=== PATIENT | male | born 1980 | race Caucasian/White ===

== ENCOUNTER 2024-02-18 16:50 | Emergency (ER) | payer OTHER, SELFPAY ==
--- NOTE | ~2024-02-18 | XR_ITS ---
EXAMINATION: XR ankle LT min 3V DATE: 02/18/2024 17:17 INDICATION: Left ankle inversion injury and lateral pain. TECHNIQUE: 4 views of left ankle were obtained. COMPARISON: None. FINDINGS: Bone alignment is normal. There is a nondisplaced transverse fracture of distal tip of the fibula. Joint spaces are normal. There is an enthesophyte at plantar aspect of calcaneal tuberosity. There is lateral ankle soft tissue swelling. IMPRESSION: 1. Transverse fracture of distal tip of the fibula. Reviewed, dictated and finalized at location E.
--- NOTE | 2024-02-18 16:57 | ED.LOWEXIN ---
HPI - Extremity Injury (Lower) General Chief Complaint: Extremity Injury, Lower Stated Complaint: Left Ankle Injury Time Seen by Provider: 02/18/24 17:25 Source: patient and RN notes reviewed Mode of arrival: ambulatory Limitations: no limitations History of Present Illness HPI Narrative: 43-year-old male presents with concern for left ankle pain for two weeks. He rolled his ankle 2 weeks ago, then had to go out of town for work for 12 days so was not able to be seen. Reports he has been walking on it. Reports that is most painful when he flexes the ankle. He has been using an [employer] wrap complaint: ankle injury Related Data Home Medications Medication Instructions Recorded Confirmed No Home Medications 02/18/24 02/18/24 Allergies Allergy/AdvReac Type Severity Reaction Status Date / Time No Known Allergies Allergy Verified 02/18/24 16:54 Review of Systems Review of Systems: CONSTITUTIONAL: Denies malaise, chills, sweats, or fever. SKIN: Denies rash or itching, open skin, laceration, abrasion, redness, warmth MUSCULOSKELETAL: Reports left lateral ankle pain and swelling NEUROLOGIC: Denies numbness, weakness All systems reviewed & are unremarkable except as noted in HPI and below PMFSH Comments At time of signature, agree with nursing past medical, surgical, social and family history. There is no relevant family history pertinent to the presenting complaint Exam Narrative: GENERAL: Well-appearing, well-nourished, and in no acute distress. HEAD: Normocephalic, atraumatic. EYES: PERRLA, conjunctivae clear NECK: Supple. CHEST: Speaks in full sentences. No respiratory distress. HEART: Regular rate and rhythm. Normal and equal peripheral pulses. EXTREMITIES: Left ankle has normal strength and sensation, grossly normal range of motion. Lateral edema without erythema or ecchymosis. Normal sensation with sensitivity to light touch and pain. Lateral ankle tenderness. No open wounds, no skin tenting, no devitalized tissue or atrophy, no trophic changes, no obvious deformity, alignment normal, nearby joints and structures intact. Distal pulses palpable and equal bilaterally, skin warm, dry, pink. Capillary refill less than 3 seconds. SKIN: Warm, dry, no rash. NEURO: Alert and oriented x3. PSYCH: Normal mood and affect Course Course Emergency Course: Patient's fracture is in a nonweightbearing bone, patient has crutches at home and has been walking on the fracture for 2 weeks, patient would like to use his crutches from home. Patient was advised to use crutches and not bear weight on the ankle and follow up with Orthopedics for further treatment. Patient is aware of diagnosis, understands and agrees to treatment plan. Anticipatory guidance given. Patient agrees to follow-up as directed and is aware of reasons to seek care at the emergency department. Portions of this record may have been created with voice recognition software Level of Care: Express Care Visit Vital Signs Vital signs: Reviewed. MDM - Extremity Injury (Lower) MDM Narrative Medical decision making narrative: Patients injury and pain is consistent with musculoskeletal etiology. No signs of neurological or vascular compromise on exam. Compartments and tissues are soft without signs of compartment syndrome. Pain is felt appropriate for further evaluation on an outpatient basis. Critical Care Time Critical Care Time Critical Care Time: No Discharge Plan Discharge Clinical Impression: Fracture, fibula Qualifiers: Encounter type: initial encounter Fibula location: distal Fracture type: closed Laterality: left Patient Disposition: Home, Self-Care Condition: Stable Instructions: Ankle Fracture (ED) Additional Instructions: Please rest, ice and elevate the affected extremity. Please take Motrin 600mg every 8 hours, as needed, for pain (take with food). Follow up with Orthopedic Surgery in 1-2 days for further evaluation - please
[2024-02-18 16:58] VITALS: BP 140/105; PULSE 93; RESP 16; TEMP 36.9; O2SAT 98
[2024-02-18 17:11] VITALS: BP 140/105; PULSE 93; RESP 16; TEMP 36.9; O2SAT 98
== END 2024-02-18 17:38 | disposition home or self-care (01) ==
PROVIDERS: Emergency Provider Nurse Practitioner; PCP Family Medicine
DX: S82.832A Other fracture of upper and lower end of left fibula, initial encounter for closed fracture (principal); X50.9XXA Other and unspecified overexertion or strenuous movements or postures, initial encounter; I10 Essential (primary) hypertension; Z96.643 Presence of artificial hip joint, bilateral
CPT/HCPCS: 73610; 99213; G0463